=== PATIENT | male | born 1945 | race Caucasian/White ===

== ENCOUNTER 2017-10-24 13:26 | Emergency (ER) | payer MEDICARE, SELFPAY ==
[2017-10-24 13:29] VITALS: BP 198/101; PULSE 93; RESP 18; TEMP 36.2; O2SAT 99; BMI 35.3
--- NOTE | 2017-10-24 13:36 | DI.RAD.S_ITS ---
PROCEDURE: XR CHEST 2V INDICATIONS: chest pain TECHNIQUE: 2 views of the chest were acquired. COMPARISON: None. FINDINGS: Surgical changes and devices: None. Lungs and pleura: No pleural effusions or pneumothorax. Lungs are clear. Mediastinum: Mediastinal contours are normal. Heart size is normal. Bones and chest wall: No suspicious bony abnormalities. Soft tissues appear unremarkable. IMPRESSION: No acute cardiopulmonary disease. Dictated by: Chasidy Lim M.D. on 10/24/2017 at 14:27 Approved by: Chasidy Lim M.D. on 10/24/2017 at 14:27
[2017-10-24 13:40] VITALS: BP 189/77; PULSE 75; RESP 23; TEMP 36.6; O2SAT 99
[2017-10-24 13:49] LABS: Add Manual Diff / Slide Review NO; Basophils Percent Auto 0.8 % (0-2); Eosinophils Percent Auto 1.2 % (2-4); Hematocrit 50.6 % (41-53); Hemoglobin 16.9 g/dL (13.5-17.5); Lymphocytes Percent Auto 22.3 % (25-40); Mean Corpuscular HGB Conc 33.5 % (30-36); Mean Corpuscular Hemoglobin 31.3 PG (26-34); Mean Corpuscular Volume 93.4 fL (80-100); Monocytes Percent Auto 10.4 % (3-14); Neutrophils Absolute Auto 3900 /uL (3000-5900); Neutrophils Percent Auto 65.3 % (50-75); Platelet Count 245 X10^3/uL (150-400); Red Blood Cell Count 5.42 X10^6/uL (4.5-5.9); Red Cell Distribution Width 14.7 % (11.6-14.8)
[2017-10-24 13:55] LABS: INR 2.1 (0.9-1.3); Prothrombin Time 23.1 SECONDS (10.1-12.7)
[2017-10-24 13:57] LABS: PTT Partial Thromboplastin Tim 42 SECONDS (26.4-36.2)
[2017-10-24 13:59] LABS: Alanine Aminotransferase 31 IU/L (21-72); Albumin 4.6 g/dL (3.5-5.0); Albumin Globulin Ratio 1.3 (1.0-2.8); Alkaline Phosphatase 54 U/L (38-126); Aspartate Aminotransferase 41 IU/L (17-59); Bilirubin Total 0.8 mg/dL (0.2-1.3); Blood Urea Nitrogen 22 mg/dL (9-20); Calcium 9.1 mg/dL (8.4-10.2); Carbon Dioxide 25 mmol/L (22-32); Chloride 100 mmol/L (98-107); Creatine Kinase 182 U/L (55-170); Estimated Glomerular Filt Rate > 60.0 mL/min (>60); Globulin 3.5 g/dL (1.7-4.1); Glucose 120 mg/dL (80-110); Lipase 53 U/L (23-300); Potassium 4.2 mmol/L (3.4-5.1); Sodium 137 mmol/L (137-145); Total Protein 8.1 g/dL (6.3-8.2)
[2017-10-24 14:10] LABS: Troponin I 0.053 ng/mL (0.01-0.034)
[2017-10-24 14:14] LABS: CKMB % Relative Index 1.8 % (1.5-5.0); Creatine Kinase MB 3.23 ng/mL (<2.37); HEMOLYSIS 40 (0-50)
[2017-10-24 14:30] VITALS: BP 166/71; PULSE 77; RESP 17; O2SAT 99
[2017-10-24] MEDS: METOPROLOL TARTRATE 5 MG/5 ML INJ IV (14:41)
[2017-10-24] MEDS: HEPARIN 5,000 UNIT/ML VIAL 6200 UNIT IV (15:23)
[2017-10-24] MEDS: HEPARIN DRIP 25,000 UNIT/500 ML IV.SOLN 29.937 UNIT IV (15:23)
[2017-10-24 15:38] VITALS: BP 163/78; PULSE 61; RESP 16; O2SAT 98
--- NOTE | 2017-10-24 16:17 | ED.CHESTPAIN ---
HPI - Chest Pain General Chief Complaint: Chest Pain Stated Complaint: CHEST PAIN History of Present Illness HPI narrative: HPI 72-year-old obese male with CAD (S/P stenting 2007) and A. fib on warfarin presents for evaluation of resolved squeezing substernal nonradiating chest pain that began when the patient was walking approximately 1.5 hours [employer]. Patient reports that after onset of pain would worsen with walking and relieved with rest when the patient is not walking is no pain, upon walking his pain resumes. Patient took 2 aspirin prior to arrival. Patient has not had a stress test in many years. 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 Patient denies cough, fevers, chills. M/S/F/SocHx notable for: please see HPI; remainder reviewed with patient and in chart. ROS: Negative constitutional, eye, cardiovascular, pulmonary, GI, , MSK, skin, neurologic, psychiatric, endocrine unless noted in the HPI. Exam Gen: Pleasant, non-toxic appearing, resting comfortably. HEENT: NC, AT, PEERL, EOMI. Resp: Clear to auscultation bilaterally, normal work of breathing. Card: irregularly irregular with no M/R/G, no crackles in lung bases, no pedal edema, no JVD appreciated. GI: NT/ND Vascular: Both ankles, calves, and thighs of equal size, no calf tenderness to palpation bilaterally. MSK: No chest wall TTP. No visible deformities, strength and tone WNL. Skin: Normal color with no visible lesions. Neuro: AO x 3, no facial asymmetry, vision and hearing WNL. Psych: Mood and affect appropriate. Labs / Imaging (pertinent): WBC 6.0, Hb 16.9, Na 137, K 4.2. Troponin 0.053, CK MB 2.23 PT/INR 2.1 EKG: atrial fibrillation with ventricular rate of 85 bpm. CXR: No acute cardiopulmonary disease process. No focal infiltrate, cardiomegaly, rib fractures, or mediastinal widening, lung markings extend to the periphery bilaterally and there are no deep sulci. Radiologist's read pending. MDM Previous chart, nursing note, and vitals reviewed. A: 72-year-old obese male with CAD (S/P stenting 2007) and A. fib on warfarin presents for evaluation of resolved squeezing substernal nonradiating chest pain that began when the patient was walking approximately 1.5 hours [employer]. DDx: ACS, unstable angina, pericarditis, myocarditis, dissection, PE, mediastinal air, pneumothorax, MSK, endocarditis, GI. Evaluation: ECG without clear evidence of ischemia, initial troponin 0.053, given the history significant concern exists for unstable angina versus early NSTEMI. Patient already received aspirin, currently asymptomatic, noted to be hypertensive. Patient given IV metoprolol for initial treatment. Transfer to [facility] for further care. Chest x-ray, CBC, BMP, an EKG without clear evidence of remainder of differential. Low suspicion for GI, further evaluation deferred to the accepting facility. Heparin bolus and drip ordered. Given the overall symptom constellation strongly suspected NSTEMI, however this will require further evaluation. Impression: NSTEMI (please reference below for remainder of encounter information) Critical Care Time Organ system(s): Cardiopulmonary Intervention: Assessment of the patient, interpretation of studies, communication related to patient care. Time: 30 minutes were spent directly related to patient care exclusive of separately billed procedures. Related Data Home Medications Medication Instructions Recorded Confirmed ASPIRIN (Aspirin EC) 81 mg PO EVERY OTHER DAY #0 10/21/11 Previous Rx's Medication Instructions Recorded tadalafil [Cialis] 5 mg PO QDAY #180 tab 12/11/15 amlodipine [Norvasc] 5 mg PO QDAY #90 tab 10/28/16 lisinopril-hydrochlorothiazide 1 tab PO QDAY #90 tab 10/28/16 [Zestoretic] warfarin [Coumadin] 0 PO SEE INSTRUCTIONS #90 tab 10/28/16 warfarin [Coumadin] 0 PO SEE INSTRUCTIONS #90 tab 10/28/16 atorvastatin [Lipitor] 20 mg PO HS #90 tab 11/10/16 ezetimibe [Zetia] 10 mg PO QDAY #90 tab 12/04/16 Allergies Allergy/AdvReac Type Severity Reaction Status Date / Time simvastatin [SIMVASTATIN] Allergy Intermediate MUSCLE Verified 10/24/17 13:33 ACHES neomycin [NEOMYCIN] Allergy Mild INFLAMMATIO Verified 10/24/17 13:33 N codeine [CODEINE] Allergy Unknown Verified 10/24/17 13:33 venom-honey bee Allergy Unknown Verified 10/24/17 13:33 [BEE VENOM (HONEY BEE)] lovastatin [LOVASTATIN] AdvReac Unknown Verified 10/24/17 13:33 [facility] Social History Smoking Status: Former smoker Exam Initial Vital Signs Initial Vital Signs: Vital Signs Temperature 97.2 F L 10/24/17 13:29 Pulse Rate 93 H 10/24/17 13:29 Respiratory Rate 18 10/24/17 13:29 Blood Pressure 198/101 H 10/24/17 13:29 Pulse Oximetry 99 10/24/17 13:29 Course Orders Ordered: ED Orders 10/24/17 13:36 XR chest 2V Stat EKG-12 Lead Stat 10/24/17 13:41 Complete Blood Count AUTO DIFF Stat Comprehensive Metabolic Panel Stat Lipase Stat Partial Thromboplastin Time Stat Prothrombin Time INR Stat Troponin & CK Cardiac Panel Stat Heparin Sodium/Dextrose (Heparin Drip) 25,000 unit in 500 mls @ 29.937 mls/hr IV CONT TYSON; Protocol Last Admin: 10/24/17 15:23 Dose: 12 units/kg/hr, 29.937 mls/hr Discontinued Medications Heparin Sodium (Porcine) (Heparin) 6,200 unit 50 unit/kg (6200 unit) IV NOW ONE Stop: 10/24/17 14:58 Last Admin: 10/24/17 15:23 Dose: 6,200 unit Metoprolol Tartrate (Lopressor) 5 mg IV Q5M TYSON Stop: 10/24/17 14:56 Last Admin: 10/24/17 15:29 Dose: Admin: 10/24/17 14:41 Dose: 5 mg Vital Signs - 8 hr 10/24/17 13:29 10/24/17 13:40 10/24/17 14:30 Temperature 97.2 F L 97.8 F Pulse Rate 93 H 75 77 Respiratory Rate 18 23 17 Blood Pressure 198/101 H Blood Pressure [Left Arm] 189/77 H 166/71 H Pulse Oximetry 99 99 99 10/24/17 15:38 Temperature Pulse Rate 61 Respiratory Rate 16 Blood Pressure Blood Pressure [Left Arm] 163/78 H Pulse Oximetry 98 MDM - Chest Pain Lab Data Result diagrams: 10/24/17 13:41 10/24/17 13:41 Lab Results 10/24/17 10/24/17 10/24/17 Range/Units 13:41 13:41 13:41 WBC 6.0 (4.5-11.0) X10^3/uL RBC 5.42 (4.5-5.9) X10^6/uL Hgb 16.9 (13.5-17.5) g/dL Hct 50.6 (41-53) % MCV 93.4 (80-100) fL MCH 31.3 (26-34) PG MCHC 33.5 (30-36) % RDW 14.7 (11.6-14.8) % Plt Count 245 (150-400) X10^3/uL Neut % (Auto) 65.3 (50-75) % Lymph % (Auto) 22.3 L (25-40) % Swain % (Auto) 10.4 (3-14) % Eos % (Auto) 1.2 L (2-4) % Baso % (Auto) 0.8 (0-2) % Neut # (Auto) 3900 (9183-8212) /uL PT 23.1 H (10.1-12.7) SECONDS INR 2.1 H (0.9-1.3) APTT 42 H (26.4-36.2) SECONDS Sodium 137 (137-145) mmol/L Potassium 4.2 (3.4-5.1) mmol/L Chloride 100 (98-107) mmol/L Carbon Dioxide 25 (22-32) mmol/L BUN 22 H (9-20) mg/dL Creatinine 1.10 (0.66-1.25) mg/dL Estimated GFR > 60.0 (>60) mL/min BUN/Creatinine Ratio 20.0 (6-22) Glucose 120 H (80-110) mg/dL Calcium 9.1 (8.4-10.2) mg/dL Total Bilirubin 0.8 (0.2-1.3) mg/dL AST 41 (17-59) IU/L ALT 31 (21-72) IU/L Alkaline Phosphatase 54 (38-126) U/L Total Creatine Kinase 182 H (55-170) U/L CK-MB (CK-2) 3.23 H (<2.37) ng/mL CK-MB (CK-2) Rel Index 1.8 (1.5-5.0) % Troponin I 0.053 H (0.01-0.034) ng/mL Total Protein 8.1 (6.3-8.2) g/dL Albumin 4.6 (3.5-5.0) g/dL Globulin 3.5 (1.7-4.1) g/dL Albumin/Globulin Ratio 1.3 (1.0-2.8) Lipase 53 (23-300) U/L Discharge Plan Departure Prescriptions: No Action ASPIRIN (Aspirin EC) 81 mg PO EVERY OTHER DAY Qty: 0 RF: 0 tadalafil [Cialis] 5 MG tablet 5 mg PO QDAY Qty: 180 RF: 1 amlodipine [Norvasc] 5 MG tablet 5 mg PO QDAY Qty: 90 RF: 0 warfarin [Coumadin] 5 MG tablet PO SEE INSTRUCTIONS Qty: 90 RF: 0 warfarin [Coumadin] 1 MG tablet PO SEE INSTRUCTIONS Qty: 90 RF: 0 lisinopril-hydrochlorothiazide [Zestoretic] 10 MG/12.5 MG tablet 1 tab PO QDAY Qty: 90 RF: 0 atorvastatin [Lipitor] 20 MG tablet 20 mg PO HS Qty: 90 RF: 1 ezetimibe [Zetia] 10 MG tablet 10 mg PO QDAY Qty: 90 RF: 3
[2017-10-24 16:30] VITALS: BP 151/71; PULSE 62; RESP 18; O2SAT 99
--- NOTE | 2017-10-24 17:05 | PC.NURSE ---
report called to [facility] RN PCU
== END 2017-10-24 17:05 | disposition short-term general hospital (02) ==
PROVIDERS: Emergency Provider Emergency Medicine; PCP Family Medicine
DX: I21.4 Non-ST elevation (NSTEMI) myocardial infarction (principal)
CPT/HCPCS: 36591; 71046; 80053; 82550; 82553; 83690; 84484; 85025; 85610; 85730; 93005; 93010; 96374; 96375; 99283; 99285; J1644

== ENCOUNTER → 2020-04-25 09:32 | Outpatient (CLI) | payer MEDICARE, SELFPAY ==
--- NOTE | 2020-04-25 15:13 | PM.TREADMILL ---
Cardiac Stress Test Report Referral & Results Date Patient Seen: 04/25/20 Time Patient Seen: 15:13 Requesting provider: Héctor Garcia Indication: dyspnea Rest ECG: sinus rhythm Procedure Note: Standard Maxim protocol, 4:30, 5.4 METS Reduced exercise capacity, PAKO +26% Normal hemodynamic response to exercise 4/10 chest pressure 1:42 min into recovery and resolved 6:53 min into recovery; patient was asymptomatic; moderate dyspnea with exertion 1-1.5mm hortizontal ST depression in II, III, aVF Occasional PVC Impression: Positive exercise stress test suggestive of ischemia. Nuclear images pending Please note: Actual ECG tracings can be found in the PACS system.
--- NOTE | 2020-04-25 17:24 | DI.NM.S_ITS ---
DATE OF SERVICE: 04/25/2020 PROCEDURE PERFORMED: Exercise treadmill stress and rest myocardial perfusion imaging with gating to assess ejection fraction and regional wall motion. INDICATIONS: The patient is a 74-year-old male with exertional dyspnea and chest pressure. ORDERING PROVIDER: Dr. Héctor Garcia. EXERCISE TREADMILL TESTING: The patient was able to exercise for 4 minutes 30 seconds on a standard Maxim protocol suggesting moderate-severely reduced exercise capacity with an PAKO of +26%. He had a normal heart rate response to exercise achieving a maximum heart rate of 128 BPM (81% of his predicted maximum). He had a hypertensive blood pressure response with a resting blood pressure 133/82, increasing to a maximum of 210/88. He reported 4/10 chest pressure in recovery that resolved around 7 minutes into recovery. His resting ECG is technically poor. With exercise, there is considerable motion artifact limiting the interpretation but his immediate early recovery tracings suggest 1-2 mm of flat to upsloping ST depression that could be reflective of ischemia, but are nonspecific. While his ECGs are of poor quality, his recovery ECGs suggest possible atrial/flutter. There were occasional PVCs briefly in a bigeminal pattern. At 3 minutes 40 seconds of exercise at a heart rate of 135 BPM, 25.2 millicuries of technetium-99m Myoview was injected and he was imaged 20 minutes later using a gated SPECT acquisition protocol. Earlier in the day at rest, he was injected with 14.7 millicuries of technetium-99m Myoview and imaged 30 minutes later. FINDINGS: 1. Raw data: There is fairly poor tracer uptake due to the patient's body habitus with clear chest wall attenuation. Lung/heart ratio is elevated at 0.62, which can be a sign of pulmonary congestion. TID ratio is normal at 1.13. 2. Quantitated gated SPECT: Post-stress ejection fraction is estimated at 72% without any focal wall motion abnormality. The resting ejection fraction is estimated at 62%, but the image quality is sufficiently poor to make this estimation nonspecific. Resting end-diastolic volume is 111 mL. 3. Myocardial perfusion imaging: Post-stress supine images show a fairly normal myocardial perfusion pattern without any obvious perfusion defects. Imaging in the prone position shows a mild defect in the anterior wall, likely related to chest wall attenuation. The resting images show a similar perfusion pattern to that of the post-stress supine images without any significant areas of improvement. IMPRESSION: 1. Probable normal myocardial perfusion study although with reduced specificity and sensitivity because of marginal image quality. 2. No concerning perfusion defects to suggest myocardial ischemia or previous myocardial infarction. 3. Normal left ventricular systolic function without any focal wall motion abnormality. An increased lung/heart ratio suggests the possibility of pulmonary congestion, but clinical correlation is recommended. 4. Moderate-severely reduced exercise capacity with provokable chest discomfort and ST-segment abnormalities, although ECG quality is suboptimal. He had a significant hypertensive blood pressure response to exercise. Underlying atrial fibrillation may be present but clinical correlation is needed. Abebe Barrett - BRANDON/deejay/bernardo doc#: [id number]/job#: [id number] dd: 04/25/2020 16:20:00 dt: 04/25/2020 17:12:00 DICTATING /COPIES TO: Héctor Goode MD; Héctor Garcia MD COPIES MNE: NADIA;
== END ==
PROVIDERS: PCP Family Medicine; Referring Provider Family Medicine; Visit Provider Family Medicine
DX: R06.00 Dyspnea, unspecified (principal); R94.39 Abnormal result of other cardiovascular function study; R07.89 Other chest pain; I25.118 Atherosclerotic heart disease of native coronary artery with other forms of angina pectoris; I25.2 Old myocardial infarction
CPT/HCPCS: 78452; 93017; A9502